=== PATIENT | male | born 1975 | race Caucasian/White ===

== ENCOUNTER 2016-07-26 09:37 | Emergency (ER) | payer MEDICARE, MEDICAID ==
--- NOTE | 2016-07-26 10:22 | ER Document Report ---
ED General - General Chief Complaint: Hand Swelling Stated Complaint: LEFT HAND SWELLING Time seen by provider: 10:18 Mode of Arrival: Ambulatory Information source: Patient Notes: 41-year-old male with 2 day history of pain and swelling on the dorsum of his left hand localizing over the second metacarpal. The patient reports identical symptoms 2 years ago which she says resulted in admission with IV antibiotics and then 6 weeks of IV antibiotics via PICC line. He doesn't recall which physician he was seeing her [employer] follow-up he had with says he never required surgery for the hand. 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 Patient reports current physician is Dr. luis Sewell. Patient denies fever, chills, nausea, vomiting , cough other than his baseline, shortness of breath, chest pain, abdominal pain. He is noted no rashes anywhere. He denies numbness weakness to the left hand. He reports increased pain with attempting to make a fist and says the pain localizes again over the second metacarpal dorsally Physical Exam: General: Alert, appears well. HEENT: Normocephalic. Atraumatic. PERRLA. Extraocular movements intact. Oropharynx clear. Neck: Supple. Non-tender. Respiratory: No respiratory distress. Clear and equal breath sounds bilaterally. Cardiovascular: Regular rate and rhythm. Abdominal: Normal Inspection. Soft, non-tender. No distension. Normal Bowel Sounds. Back: Non-tender. No deformity or step off. Extremities: Moves all four extremities. Left upper extremity has 2+ radial and ulnar pulses. No axillary adenopathy. Full range of motion shoulder elbow and wrist without apparent discomfort. Patient has mild soft tissue swelling over the first and second metacarpals of the webspace between those 2 digits. He is able to demonstrate full range of motion in all fingers. Radial median and ulnar nerve function is intact. Patient has a well-healed scar adjacent to the second metacarpal which patient reports is very old injury. He has brisk capillary refill to all digits and there is no erythema or warmth or palpable mass fluctuance or crepitance over the hand. Neurological: Speech clear mentation normal Psychological: Normal affect. Normal Mood. Skin: Warm. Dry. Normal color. TRAVEL OUTSIDE OF THE [place] IN LAST 30 DAYS: No - Related Data Allergies/Adverse Reactions: morphine [Morphine] Allergy (Verified 07/26/16 09:41) Past Medical History - Social History Smoking Status: Current Every Day Smoker Chew tobacco use (# tins/day): No Frequency of alcohol use: None Drug Abuse: None Family History: None Patient has suicidal ideation: No Patient has homicidal ideation: No Infectious Medical History: Reports: Hx MRSA Past Surgical History: Reports: Hx Appendectomy, Hx Orthopedic Surgery - left knee, R shoulder, Hx Tonsillectomy - Immunizations Hx Diphtheria, Pertussis, Tetanus Vaccination: Yes Review of Systems - Review of Systems Constitutional: denies: Chills, Fever EENT: denies: Ear pain, Throat pain Cardiovascular: denies: Chest pain Respiratory: Cough. denies: Short of breath Gastrointestinal: denies: Abdominal pain, Nausea, Vomiting Genitourinary: denies: Burning, Dysuria Musculoskeletal: denies: Muscle pain Skin: denies: Rash Neurological/Psychological: denies: Weakness, Numbness Physical Exam - Vital signs Vitals: Temp Pulse Resp BP Pulse Ox 98.0 F 118 H 18 124/98 H 100 07/26/16 09:40 07/26/16 09:40 07/26/16 09:40 07/26/16 09:40 07/26/16 09:40 Course - Re-evaluation Re-evalutation: 07/26/16 11:29 Patient has no erythema or warmth to suggest an infectious process the patient reports he did have that last night. I will be more inclined to diagnose this as a tenosynovitis except that the patient reports he was treated with 6 weeks of IV antibiotics after a similar presentation 2 years ago.. I certainly find nothing on laboratory workup x-rays or exam to warrant IV antibiotics now been in an abundance of caution we'll place him on Keflex and Bactrim as initial MRSA coverage. He will also be placed on nonsteroidals and will ask him to follow-up with Dr. Liz Hubbard front line supervisor for orthopedics next week for recheck. - Vital Signs Vital signs: Temp Pulse Resp BP Pulse Ox 98.0 F 118 H 18 124/98 H 100 07/26/16 09:40 07/26/16 09:40 07/26/16 09:40 07/26/16 09:40 07/26/16 09:40 - Laboratory Result Diagrams: 07/26/16 10:35 07/26/16 10:35 Laboratory results interpreted by me: 07/26/16 10:35 Potassium 3.5 L Glucose 111 H Total Bilirubin 1.7 H - Diagnostic Test Radiology reviewed: Image reviewed, Reports reviewed Discharge - Discharge Clinical Impression: Left hand pain, Tenosynovitis of hand Condition: Stable Disposition: HOME, SELF-CARE Additional Instructions: Tendonitis The pain you are having is due to tendonitis -- an inflammation around a muscle tendon. It's usually caused by overuse or repeated minor injuries ( strains) of the tendon. Tendonitis can take two to four weeks to heal. In fact, you may actually worsen for a few days despite treatment. Tendonitis is usually treated with rest, local heat, and antiinflammatory medication. Sometimes cold packs are recommended if the tendonitis has just started. If the pain is severe or prolonged, cortisone injections may be required. Call the doctor if pain or swelling become severe, if new discoloration or redness appears, or if numbness is noted. We are also prescribing antibiotics as a precaution because of your prior history of an infection that presented in a similar fashion. Blood tests x- rays and examination today do not show evidence for a fracture, dislocation, or infection. Return to emergency department for fever over 100.4, redness or worse pain or swelling to your left hand, or other problems Prescriptions: Cephalexin Monohydrate [Keflex 500 mg Capsule] 500 mg PO QID #40 capsule Naproxen Sodium 220 mg PO BID #20 tablet Sulfamethoxazole/Trimethoprim [Bactrim Ds Tablet] 1 each PO BID #20 tablet Referrals: LIZ HUBBARD DO [ACTIVE STAFF] - Follow up in 1 week
[2016-07-26 10:58] LABS: ABSOLUTE LYMPHOCYTES (AUTO) 1.6 10^3/uL (0.5-4.7); ABSOLUTE MONOCYTES (AUTO) 0.7 10^3/uL (0.1-1.4); ABSOLUTE NEUT (AUTO) 3.4 10^3/uL (1.7-8.2); BASOPHILS % (AUTO) 0.6 % (0-2); EOSINOPHILS % (AUTO) 0.8 % (0-6); HEMOGLOBIN 14.9 g/dL (13.5-17.0); HGB HCT DIFFERENCE 0.7; LYMPHOCYTES % (AUTO) 27.3 % (13-45); MEAN CORPUSCULAR HEMOGLOBIN 29.1 pg (27.0-33.4); MEAN CORPUSCULAR HGB CONC 33.8 g/dL (32.0-36.0); MEAN CORPUSCULAR VOLUME 86 fl (80-97); MONOCYTES % (AUTO) 12.1 % (3-13); RED BLOOD COUNT 5.12 10^6/uL (4.35-5.55); RED CELL DISTRIBUTION WIDTH 13.7 % (11.5-14.0); SEGMENTED NEUTROPHILS % (AUTO) 59.2 % (42-78); WHITE BLOOD COUNT 5.7 10^3/uL (4.0-10.5)
[2016-07-26 11:14] LABS: ALANINE AMINOTRANSFERASE 38 U/L (21-72); ALBUMIN 4.2 g/dL (3.5-5.0); ALKALINE PHOSPHATASE 75 U/L (38-126); ANION GAP 12 (5-19); ASPARTATE AMINO TRANSFERASE 29 U/L (17-59); BILIRUBIN,TOTAL 1.7 mg/dL (0.2-1.3); BLOOD UREA NITROGEN 11 mg/dL (7-20); CALCIUM 9.7 mg/dL (8.4-10.2); CARBON DIOXIDE 29 mmol/L (22-30); CHLORIDE 102 mmol/L (98-107); CREATININE RESULT 0.84 mg/dL (0.52-1.25); GLUCOSE 111 mg/dL (75-110); POTASSIUM 3.5 mmol/L (3.6-5.0); SODIUM 143.4 mmol/L (137-145); TOTAL PROTEIN 7.4 g/dL (6.3-8.2)
[2016-07-26 12:17] VITALS: BP 119/87
== END 2016-07-26 12:15 | disposition home or self-care (01) ==
LOC: ER 09:37
DX: M79.642 Pain in left hand (principal); M65.842 Other synovitis and tenosynovitis, left hand; F17.200 Nicotine dependence, unspecified, uncomplicated; Z86.14 Personal history of Methicillin resistant Staphylococcus aureus infection; Z86.718 Personal history of other venous thrombosis and embolism; Z96.652 Presence of left artificial knee joint
CPT/HCPCS: 36415; 80053; 85025; 87040; 99283

== ENCOUNTER 2016-12-14 10:32 | Emergency (ER) | payer MEDICARE, MEDICAID ==
[2016-12-14 11:57] VITALS: BP 141/97
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
--- NOTE | 2016-12-14 13:18 | RADIOLOGY REPORT (SQ) ---
EXAM DESCRIPTION: KNEE LEFT 4 VIEW COMPLETED DATE/TIME: 12/14/2016 12:41 pm REASON FOR STUDY: knee pain, goes out on him COMPARISON: None. NUMBER OF VIEWS: Four views. TECHNIQUE: AP, lateral, and both oblique radiographic images acquired of the left knee. LIMITATIONS: None. FINDINGS: MINERALIZATION: Normal. BONES: There is a knee arthroplasty in good position. JOINT: No effusion. SOFT TISSUES: No soft tissue swelling. No radio-opaque foreign body. OTHER: No other significant finding. IMPRESSION: NEGATIVE STUDY OF THE LEFT KNEE. NO RADIOGRAPHIC EVIDENCE OF ACUTE INJURY. TECHNICAL DOCUMENTATION: JOB ID: [id number] [email or web address]- All Rights Reserved
== END 2016-12-14 13:07 | disposition home or self-care (01) ==
LOC: ER 10:32
DX: G89.29 Other chronic pain (principal); M25.562 Pain in left knee; F17.200 Nicotine dependence, unspecified, uncomplicated; Z86.14 Personal history of Methicillin resistant Staphylococcus aureus infection
CPT/HCPCS: 99283

== ENCOUNTER 2017-06-27 07:17 | Emergency (ER) | payer MEDICARE, MEDICAID ==
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
[2017-06-27] MEDS ORDERED: DIPHENHYDRAMINE HCL 50 MG CAPSULE PO ONE (08:20)
[2017-06-27] MEDS ORDERED: KETOROLAC TROMETHAMINE 60 MG/2 ML SDV IM ONE (08:20)
[2017-06-27] MEDS ORDERED: PROCHLORPERAZINE EDISYLATE INJ 10 MG/2 ML VIAL IM ONE (08:20)
--- NOTE | 2017-06-27 08:26 | RADIOLOGY REPORT (SQ) ---
EXAM DESCRIPTION: CT HEAD WITHOUT COMPLETED DATE/TIME: 06/27/2017 7:58 am REASON FOR STUDY: head injury 10 days prior, continued headache COMPARISON: 07/13/2015 TECHNIQUE: Axial images acquired through the brain without intravenous contrast. Images reviewed wi th bone, brain and subdural windows. Images stored on PACS. All CT scanners at this facility use dose modulation, iterative reconstruction, and/or weight based d osing when appropriate to reduce radiation dose to as low as reasonably achievable (ALARA). [facility]: Dose Right [facility]: CareDose [facility]: Dose Right [facility]: Teradose 4D [facility]: [employer] RADIATION DOSE: 64.6 mGy. LIMITATIONS: None. FINDINGS: VENTRICLES: Normal size and contour. CEREBRUM: No masses. No hemorrhage. No midline shift. No evidence for acute infarction. Normal gra y/white matter differentiation. No areas of low density in the white matter. CEREBELLUM: No masses. No hemorrhage. No alteration of density. No evidence for acute infarction. EXTRAAXIAL SPACES: No fluid collections. No masses. ORBITS AND GLOBE: No intra- or extraconal masses. Normal contour of globe without masses. CALVARIUM: No fracture. PARANASAL SINUSES: No fluid or mucosal thickening. SOFT TISSUES: No mass or hematoma. OTHER: No other significant finding. IMPRESSION: NORMAL BRAIN CT WITHOUT CONTRAST. EVIDENCE OF ACUTE STROKE: NO. COMMENT: Quality ID # [id number]: Final reports with documentation of one or more dose reduction techniques (e.g., Automated exposure control, adjustment of the mA and/or kV according to patient size, use of iterative reconstruction technique) TECHNICAL DOCUMENTATION: JOB ID: [id number] [employer]- All Rights Reserved
[2017-06-27 09:05] VITALS: BP 113/81
== END 2017-06-27 09:05 | disposition home or self-care (01) ==
LOC: ER 07:17
DX: S06.0X1A Concussion with loss of consciousness of 30 minutes or less, initial encounter (principal); W20.8XXA Other cause of strike by thrown, projected or falling object, initial encounter; F17.210 Nicotine dependence, cigarettes, uncomplicated; Z88.6 Allergy status to analgesic agent; Z86.14 Personal history of Methicillin resistant Staphylococcus aureus infection
CPT/HCPCS: 99283; 96372; 70450; A9270; J0780

== ENCOUNTER 2017-09-04 08:30 | Emergency (ER) | payer MEDICARE, MEDICAID ==
[2017-09-04] MEDS ORDERED: DICYCLOMINE HCL INJ 20 MG/2 ML AMPULE IM ONE (09:27)
[2017-09-04] MEDS ORDERED: METOCLOPRAMIDE HCL INJ/PF 10 MG/2 ML SDV IV ONE (09:27)
[2017-09-04] MEDS ORDERED: NORMAL SALINE 1000 ML 1,000 ML IV ONE (09:27)
--- NOTE | 2017-09-04 09:28 | ER Document Report ---
ED Medical Screen (RME) - General Chief Complaint: Nausea/Vomiting/Diarrhea Stated Complaint: VOMITING Time Seen by Provider: 09/04/17 09:22 Mode of Arrival: Wheelchair Information source: Patient, Relative Notes: 42-year-old male with no previous medical history presents with 3 hour duration of nausea vomiting diarrhea abdominal cramping and sweating. Patient denies any fevers. I have greeted and performed a rapid initial assessment of this patient. A comprehensive ED assessment and evaluation of the patient, analysis of test results and completion of the medical decision making process will be conducted by additional ED providers. PHYSICAL EXAMINATION: GENERAL: Mildly ill-appearing male in mild acute distress HEAD: Atraumatic, normocephalic. EYES: Pupils equal round extraocular movements intact, conjunctiva are normal. ENT: Nares patent NECK: Normal range of motion LUNGS: No respiratory distress Musculoskeletal: Normal range of motion NEUROLOGICAL: Normal speech, normal gait. PSYCH: Normal mood, normal affect. SKIN: sweating TRAVEL OUTSIDE OF THE [place] IN LAST 30 DAYS: No - Related Data Allergies/Adverse Reactions: morphine [Morphine] Allergy (Verified 09/04/17 08:35) tramadol Adverse Reaction (Verified 09/04/17 08:35) Past Medical History Renal/ Medical History: Denies: Hx Peritoneal Dialysis Infectious Medical History: Reports: Hx MRSA Past Surgical History: Reports: Hx Appendectomy, Hx Orthopedic Surgery - left knee, R shoulder, Hx Tonsillectomy - Immunizations Hx Diphtheria, Pertussis, Tetanus Vaccination: Yes Physical Exam - Vital signs Vitals: Pulse Resp BP Pulse Ox 107 H 26 H 136/92 H 100 09/04/17 08:38 09/04/17 08:38 09/04/17 08:38 09/04/17 08:38 Course - Vital Signs Vital signs: Temp Pulse Resp BP Pulse Ox 107 H 26 H 136/92 H 100 09/04/17 08:38 09/04/17 08:38 09/04/17 08:38 09/04/17 08:38
--- NOTE | 2017-09-04 09:39 | ER Document Report ---
ED General - General Chief Complaint: Nausea/Vomiting/Diarrhea Stated Complaint: VOMITING Time Seen by Provider: 09/04/17 09:22 Mode of Arrival: Wheelchair TRAVEL OUTSIDE OF THE [place] IN LAST 30 DAYS: No - HPI Notes: 42-year-old male with history of Romero's esophagitis, hepatitis C presents today with complaints of sudden onset nausea vomiting diarrhea with diffuse abdominal pain with an episode of transient chest pain that radiated to his left and right shoulders with numbness and tingling that started approximately 4 hours ago. Denies any fevers or chills, nasal congestion, headache, sore throat or cough. Patient reports that he ate pizza last night and drink milk, states that milk was in day. Denies any speech changes, dizziness, blurred vision, double vision, loss of vision, shortness of breath, lower back pain, penile or testicular pain. Denies any rashes. Denies any recent travel outside the country, new medications or new foods. Has not been around any sick contacts with gastroenteritis symptoms. Patient is being followed by Dr. Núñez, mail machine operator in [place] for his Romero's esophagitis and hepatitis C. reports pain 7 out of 10, throbbing achy. Denies any blood in his stool, coffee-ground emesis or black tarry stool. His any history of external/ internal hemorrhoids. Recently had a colonoscopy and endoscopically done in December 2016, this is where they diagnosed him with Romero's esophagitis. Colonoscopy was considered normal per patient. - Related Data Allergies/Adverse Reactions: morphine [Morphine] Allergy (Verified 09/04/17 08:35) tramadol Adverse Reaction (Verified 09/04/17 08:35) Past Medical History - General Information source: Patient, Relative - Social History Smoking Status: Current Every Day Smoker Chew tobacco use (# tins/day): - 30 Frequency of alcohol use: None Drug Abuse: None Family History: None Patient has suicidal ideation: No Patient has homicidal ideation: No Renal/ Medical History: Denies: Hx Peritoneal Dialysis Infectious Medical History: Reports: Hx MRSA Past Surgical History: Reports: Hx Appendectomy, Hx Orthopedic Surgery - left knee, R shoulder, Hx Tonsillectomy - Immunizations Hx Diphtheria, Pertussis, Tetanus Vaccination: Yes Review of Systems - Review of Systems Constitutional: No symptoms reported EENT: No symptoms reported Cardiovascular: See HPI Respiratory: No symptoms reported Gastrointestinal: See HPI Genitourinary: No symptoms reported Male Genitourinary: No symptoms reported Musculoskeletal: No symptoms reported Skin: No symptoms reported Hematologic/Lymphatic: No symptoms reported Neurological/Psychological: No symptoms reported Physical Exam - Vital signs Vitals: Pulse Resp BP Pulse Ox 107 H 26 H 136/92 H 100 09/04/17 08:38 09/04/17 08:38 09/04/17 08:38 09/04/17 08:38 Interpretation: Tachycardic - General General appearance: Appears well In distress: Mild - HEENT Head: Normocephalic Eyes: Normal Conjunctiva: Normal - Respiratory Respiratory status: No respiratory distress Chest status: Nontender Breath sounds: Normal Chest palpation: Normal - Cardiovascular Rhythm: Regular Heart sounds: Normal auscultation Pulses: Decreased: Radial Normal capillary refill: Yes - Abdominal Inspection: Normal Distension: No distension Bowel sounds: Hyperactive Tenderness: Tender - diffuse Organomegaly: No organomegaly - Back Back: Normal, Nontender - Extremities General upper extremity: Normal inspection, Nontender, Normal strength, Normal temperature General lower extremity: Normal inspection, Nontender, Normal strength, Normal temperature - Neurological Neuro grossly intact: Yes Cognition: Normal Orientation: AAOx4 [place] Coma Scale Eye Opening: Spontaneous [place] Coma Scale Verbal: Oriented [place] Coma Scale Motor: Obeys Commands [place] Coma Scale Total: 15 Speech: Normal Cranial nerves: Normal Cerebellar coordination: Normal Motor strength normal: LUE, RUE, LLE, RLE 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 On re-exam, patient is symptomatically improved. Will order another IV bolus. Patient is resting and comfortable. CBC unremarkable, no leukocytosis, CMP with normal kidney function , liver enzymes normal, cardiac enzymes negative, chest x-ray unremarkable. Rechecked the patient who is resting comfortably. On re-exam, patient is symptomatically improved. Discussed the results of labs as well as the diagnosis at great length. Pt has not vomited or stool since he came to the emergency room. Patient stated he felt 100 times better and would like to go home. Advised him to drink Pedialyte and chicken broth. Discussed the need to return to the ER for any new or worsening sx. Patient understands to take the Rx as directed. All questions answered by this provider. Patient agreed with plan of care and verbalized understanding of plan of care. Patient comfortable with the decision to go home. After performing a Medical Screening Examination, I estimate there is LOW risk for ACUTE APPENDICITIS, BOWEL OBSTRUCTION, ACUTE CHOLECYSTITIS, PERFORATED DIVERTICULITIS, INCARCERATED HERNIA, PANCREATITIS, TESTICULAR TORSION or PERFORATED ULCER, thus I consider the discharge disposition reasonable. Also, there is no evidence or peritonitis, sepsis, or toxicity. I have reevaluated this patient multiple times and no significant life threatening changes are noted. The patient and I have discussed the diagnosis and risks, and we agree with discharging home with close follow-up with the understanding that symptoms and presentations can change. We also discussed returning to the Emergency Department immediately if new or worsening symptoms occur. We have discussed the symptoms which are most concerning (e.g., bloody stool, fever, changing or worsening pain, intractable vomiting - standard verbal up date) that necessitate immediate return. - Vital Signs Vital signs: Temp Pulse Resp BP Pulse Ox 98.7 F 106 H 26 H 119/74 100 09/04/17 12:58 09/04/17 12:58 09/04/17 08:38 09/04/17 12:58 09/04/17 12:58 - Laboratory Result Diagrams: 09/04/17 11:49 09/04/17 11:49 Laboratory results interpreted by me: 09/04/17 09/04/17 11:49 11:49 WBC 16.9 H RDW 14.1 H Seg Neuts % (Manual) 89 H Band Neutrophils % 2 L Lymphocytes % (Manual) 2 L Abs Neuts (Manual) 15.4 H Abs Lymphs (Manual) 0.3 L Carbon Dioxide 21 L BUN 25 H Creatinine 1.42 H Est GFR (Non-Af Amer) 54 L Glucose 64 L Discharge - Discharge Clinical Impression: Gastroenteritis Condition: Good Disposition: HOME, SELF-CARE Instructions: Antinausea Medication ([facility]), Clear Liquid Diet ([facility]), Gastroenteritis (adult) ([facility]), Intravenous (IV) Fluids ([facility]), OTC Antidiarrhea Medication ([facility]) Prescriptions: Dicyclomine HCl [Bentyl 10 mg Capsule] 1 cap PO TIDP PRN #20 cap PRN Reason: Ondansetron [Zofran Odt 4 mg Tablet] 1 - 2 tab PO Q4H PRN #15 tab.rapdis PRN Reason: For Nausea/Vomiting Forms: Return to Work Referrals: DELVIS ASMAYOA MD [Primary Care Provider] - Follow up in 3-5 days
--- NOTE | 2017-09-04 11:09 | RADIOLOGY REPORT (SQ) ---
EXAM DESCRIPTION: CHEST SINGLE VIEW COMPLETED DATE/TIME: 09/04/2017 10:53 am REASON FOR STUDY: cp with rad to left/right arm COMPARISON: None. EXAM PARAMETERS: NUMBER OF VIEWS: One view. TECHNIQUE: Single frontal radiographic view of the chest acquired. RADIATION DOSE: NA LIMITATIONS: None. FINDINGS: LUNGS AND PLEURA: No opacities, masses or pneumothorax. No pleural effusion. MEDIASTINUM AND HILAR STRUCTURES: No masses. Contour normal. HEART AND VASCULAR STRUCTURES: Heart normal in size. Normal vasculature. BONES: No acute findings. HARDWARE: None in the chest. OTHER: No other significant finding. IMPRESSION: NO ACUTE RADIOGRAPHIC FINDING IN THE CHEST. TECHNICAL DOCUMENTATION: JOB ID: [id number] [employer]- All Rights Reserved
[2017-09-04] MEDS: NORMAL SALINE 1000 ML 1,000 ML IV PRN ×2 (11:32→11:37)
[2017-09-04 12:08] LABS: HEMATOCRIT 47.3 % (37.9-51.0); HEMOGLOBIN 15.9 g/dL (13.5-17.0); MEAN CORPUSCULAR HEMOGLOBIN 29.2 pg (27.0-33.4); MEAN CORPUSCULAR HGB CONC 33.7 g/dL (32.0-36.0); MEAN CORPUSCULAR VOLUME 87 fl (80-97); PLATELET COUNT 256 10^3/uL (150-450); RED BLOOD COUNT 5.46 10^6/uL (4.35-5.55); RED CELL DISTRIBUTION WIDTH 14.1 % (11.5-14.0); WHITE BLOOD COUNT 16.9 10^3/uL (4.0-10.5)
[2017-09-04 12:29] LABS: ALANINE AMINOTRANSFERASE 39 U/L (21-72); ALBUMIN 4.3 g/dL (3.5-5.0); ALKALINE PHOSPHATASE 90 U/L (38-126); ANION GAP 14 (5-19); ASPARTATE AMINO TRANSFERASE 38 U/L (17-59); BILIRUBIN,DIRECT 0.4 mg/dL (0.0-0.4); BILIRUBIN,TOTAL 1.3 mg/dL (0.2-1.3); BLOOD UREA NITROGEN 25 mg/dL (7-20); CARBON DIOXIDE 21 mmol/L (22-30); CHLORIDE 106 mmol/L (98-107); CREATINE KINASE 134 U/L (55-170); GLUCOSE 64 mg/dL (75-110); POTASSIUM 3.9 mmol/L (3.6-5.0); SODIUM 141.4 mmol/L (137-145); TOTAL PROTEIN 7.3 g/dL (6.3-8.2)
[2017-09-04 12:35] LABS: ABSOLUTE LYMPHOCYTES# (MANUAL) 0.3 10^3/uL (0.5-4.7); ABSOLUTE MONOCYTES # (MANUAL) 1.2 10^3/uL (0.1-1.4); ABSOLUTE NEUTROPHILS# (MANUAL) 15.4 10^3/uL (1.7-8.2); BAND NEUTROPHILS % (MANUAL) 2 % (3-5); BASOPHILS % (MANUAL) 0 % (0-2); EOSINOPHILS % (MANUAL) 0 % (0-6); LYMPHOCYTES % (MANUAL) 2 % (13-45); MONOCYTES % (MANUAL) 7 % (3-13); SEGMENTED NEUTROPHILS % (MAN) 89 % (42-78); TOTAL CELLS COUNTED 100
[2017-09-04 12:38] LABS: ANISOCYTOSIS SLIGHT; OVALOCYTES 1+; PLATELET COMMENT ADEQUATE; PLATELET GIANT PRESENT; POIKILOCYTOSIS SLIGHT; TOXIC GRANULATION 1+; TOXIC VACUOLATION PRESENT
[2017-09-04 13:02] VITALS: BP 119/74
== END 2017-09-04 13:03 | disposition home or self-care (01) ==
LOC: ER 08:30
DX: K52.9 Noninfective gastroenteritis and colitis, unspecified (principal); R11.2 Nausea with vomiting, unspecified; R10.84 Generalized abdominal pain; R07.9 Chest pain, unspecified; R20.0 Anesthesia of skin; R20.2 Paresthesia of skin; K22.70 Barrett's esophagus without dysplasia; R00.0 Tachycardia, unspecified; B19.20 Unspecified viral hepatitis C without hepatic coma; F17.200 Nicotine dependence, unspecified, uncomplicated; Z86.14 Personal history of Methicillin resistant Staphylococcus aureus infection; Z88.5 Allergy status to narcotic agent
CPT/HCPCS: 99284; 96372; 96361; 96374; 36415; 82550; 83690; 85025; 80053; 84484; 71045; J0500; J2765; J7030